=== PATIENT | male | born 2005 | race Caucasian/White ===

== ENCOUNTER 2023-01-13 18:33 | Emergency (ER) | payer BC ==
[~2023-01-13] VITALS: Ht 162.6 cm; Wt 66.7 kg
[2023-01-13 18:38] VITALS: BP 126/81; PULSE 79; RESP 16; O2SAT 98
[2023-01-13] MEDS ORDERED: IBUP-1842 PO (18:46)
[2023-01-13] MEDS ORDERED: CEPH-588 PO (18:46)
[2023-01-13] MEDS ORDERED: BACI-418 TP (18:46)
[2023-01-13 18:56] VITALS: TEMP 98
== END 2023-01-13 18:56 | disposition home or self-care (01) ==
LOC: MED 18:33
DX: L03.113 Cellulitis of right upper limb (principal); L84 Corns and callosities; Z79.2 Long term (current) use of antibiotics; Z79.1 Long term (current) use of non-steroidal anti-inflammatories (NSAID)
CPT/HCPCS: 99283

== ENCOUNTER 2023-01-30 14:44 | Emergency (ER) | payer BC ==
[~2023-01-30] VITALS: Ht 167.6 cm; Wt 54.4 kg
[~2023-01-30 14:44] MED LIST: BACI-418 TP; CEPH-588 PO; IBUP-1842 PO
[2023-01-30 14:58] VITALS: BP 125/70; PULSE 78; RESP 18; TEMP 97; O2SAT 98
[2023-01-30] MEDS ORDERED: LIDOCAINE MPF 1% 10 MG/ML VIAL INJ ONE ×2 (16:25)
[2023-01-30] MEDS ORDERED: IBUPROFEN 600 MG TAB PO ONE (16:25)
[2023-01-30] MEDS ORDERED: CEPH-588 PO (17:58)
[2023-01-30] MEDS ORDERED: SULF-59 PO (17:58)
[2023-01-30] MEDS ORDERED: IBUP-2213 PO (17:58)
[2023-01-30 18:08] VITALS: BP 111/67; PULSE 74; RESP 17; O2SAT 98
== END 2023-01-30 18:09 | disposition home or self-care (01) ==
LOC: MED 14:44
DX: L03.011 Cellulitis of right finger (principal)
CPT/HCPCS: 26011; 99284; J2001; 99282

== ENCOUNTER 2023-02-01 16:27 | Emergency (ER) | payer BC ==
[~2023-02-01] VITALS: Ht 170.2 cm; Wt 66.2 kg
[~2023-02-01 16:27] MED LIST changes: +IBUP-2213 PO; +SULF-59 PO
[2023-02-01 16:41] VITALS: BP 111/73; PULSE 77; RESP 16; TEMP 99.2; O2SAT 100
[2023-02-01 17:04] VITALS: BP 111/73; PULSE 77; RESP 16; TEMP 99.2; O2SAT 100
== END 2023-02-01 17:04 | disposition home or self-care (01) ==
LOC: MED 16:27
DX: Z48.00 Encounter for change or removal of nonsurgical wound dressing (principal); Z79.1 Long term (current) use of non-steroidal anti-inflammatories (NSAID); Z79.2 Long term (current) use of antibiotics
CPT/HCPCS: 99281